=== PATIENT | female | born 1985 | race American Indian/Alaskan Native ===

== ENCOUNTER 2021-05-17 16:20 | Emergency (ER) | payer MEDICAID ==
[2021-05-17 16:34] VITALS: BP 167/85
[2021-05-17] MEDS ORDERED: FAMOTIDINE 20 MG/2 ML INJ IV ONE (16:35)
[2021-05-17] MEDS ORDERED: diphenhydrAMINE 50 MG/ML VIAL IV ONE (16:35)
[2021-05-17] MEDS ORDERED: SODIUM CHLORIDE 0.9% 1000 ML 1,000 ML IV ONE (16:35)
[2021-05-17] MEDS ORDERED: methylPREDNISolone Sod Succinate 125 MG/2 ML INJ IV ONE (16:36)
[2021-05-17] MEDS ORDERED: EPINEPHrine/PF 1 MG/1 ML INJ SUB-Q ONE (16:36)
--- NOTE | 2021-05-17 16:42 | Emergency Department Report ---
ED General Adult HPI - General Chief complaint: Allergic Reaction Stated complaint: ALLERGIC REACTION Time Seen by Provider: 05/17/21 16:34 Source: patient Mode of arrival: Ambulatory Limitations: No Limitations - History of Present Illness Initial comments: 35-year-old female presents to the ER today with complaints of allergic reaction and breaking out in hives. Patient states that she was on her way to work when she started itching all over. She states that when she looked she noticed that she was covered in hives all over her body. She reports swelling around her eyes , but denies any tongue or lip swelling, throat swelling, itching in her throat, wheezing, or difficulty breathing. she denies any specific triggers such as new foods, soaps, lotions, new meds or any other new contacts. She states that she did take 2 Benadryl's prior to coming in without much relief of her symptoms. Patient states that she has been breaking out in hives off and on since last year. She states usually when she breaks out it would be mild. She denies any specific trigger. She states that typically she would take some Benadryl and it would resolve. 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 She denies prior allergy to any shellfish. She has never seen a marketing project manager or primary care doctor or an developer trading systems since she has been breaking out in hives. She states that this is the worst that it has been and this is the first time she ever came to the ER for that. Complaint: Allergic reaction -: Sudden - Related Data Previous Rx's Medication Instructions Recorded Last Taken Type HYDROcodone/APAP 5-325 [[place] 1 each PO Q6HR PRN #10 tablet 07/30/16 Unknown Rx 5/325] EPINEPHrine [Epipen] 0.3 mg IJ ONCE #1 auto.injct 05/17/21 Unknown Rx Famotidine [Pepcid] 20 mg PO BID #10 tablet 05/17/21 Unknown Rx diphenhydrAMINE [Benadryl CAP] 25 mg PO Q6HR PRN #30 capsule 05/17/21 Unknown Rx predniSONE [Deltasone] 50 mg PO QDAY #5 tab 05/17/21 Unknown Rx Allergies Allergy/AdvReac Type Severity Reaction Status Date / Time No Known Allergies Allergy Verified 01/16/16 12:39 ED Review of Systems ROS: Stated complaint: ALLERGIC REACTION Other details as noted in HPI Comment: All other systems reviewed and negative Constitutional: denies: chills, diaphoresis, fever, malaise, weakness Eyes: denies: eye pain, eye discharge, vision change ENT: denies: ear pain, throat pain, dental pain, hearing loss, epistaxis, congestion Respiratory: denies: cough, orthopnea, shortness of breath, SOB with exertion, SOB at rest, wheezing Cardiovascular: denies: chest pain, palpitations, dyspnea on exertion, edema, syncope, paroxysmal nocturnal dyspnea Endocrine: no symptoms reported Gastrointestinal: denies: abdominal pain, nausea, vomiting, diarrhea, constipation, hematemesis, melena, hematochezia Genitourinary: denies: urgency, dysuria, discharge Musculoskeletal: denies: back pain, joint swelling, arthralgia, myalgia Skin: rash, pruritus. denies: lesions Neurological: denies: headache, weakness, paresthesias Psychiatric: denies: anxiety, depression, auditory hallucinations, visual hallucinations, homicidal thoughts, suicidal thoughts Hematological/Lymphatic: denies: easy bleeding, easy bruising, swollen glands ED Past Medical Hx - Past Medical History Hx Hypertension: No Hx Seizures: No Hx Asthma: No - Surgical History Additional Surgical History: tubal ligation - Social History Smoking Status: Never Smoker Substance Use Type: None - Medications Home Medications: Home Medications Medication Instructions Recorded Confirmed Last Taken Type HYDROcodone/APAP 5-325 [[place] 1 each PO Q6HR PRN #10 tablet 07/30/16 Unknown Rx 5/325] EPINEPHrine [Epipen] 0.3 mg IJ ONCE #1 auto.injct 05/17/21 Unknown Rx Famotidine [Pepcid] 20 mg PO BID #10 tablet 05/17/21 Unknown Rx diphenhydrAMINE [Benadryl CAP] 25 mg PO Q6HR PRN #30 capsule 05/17/21 Unknown Rx predniSONE [Deltasone] 50 mg PO QDAY #5 tab 05/17/21 Unknown Rx ED Physical Exam - General Limitations: No Limitations General appearance: alert, in no apparent distress - Head Head exam: Present: atraumatic, normocephalic, normal inspection - Eye Eye exam: Present: PERRL, EOMI, scleral icterus, conjunctival injection, nystagmus, periorbital swelling (Mild bilaterally). Absent: periorbital tenderness - ENT ENT exam: Present: normal exam, normal orophraynx, mucous membranes moist, TM's normal bilaterally - Neck Neck exam: Present: normal inspection, full ROM - Respiratory Respiratory exam: Present: normal lung sounds bilaterally. Absent: respiratory distress, wheezes, rales, rhonchi, stridor - Cardiovascular Cardiovascular Exam: Present: regular rate, normal rhythm, normal heart sounds - Back Exam Back exam: Present: full ROM - Neurological Exam Neurological exam: Present: alert, oriented X3, CN II-XII intact, normal gait - Psychiatric Psychiatric exam: Present: anxious - Skin Skin exam: Present: urticaria ( severe erythematous urticarial rash noted to bilateral upper extremities, trunk, and bilateral upper legs) ED Course Vital Signs 05/17/21 16:27 Temperature 97.4 F L Pulse Rate 99 H Respiratory 16 Rate Blood Pressure 167/85 O2 Sat by Pulse 100 Oximetry ED Medical Decision Making - Medical Decision Making 192: Patient reports feeling much better after IV Benadryl, Solu-Medrol Pepcid and epi. Urticarial rash has complete resolved after meds. Mild periorbital swelling also improved. Patient is resting comfortably, sitting up in the bed. She is not in any respiratory distress. Her airway is intact. She is controlling her secretions well and there is no stridor. She is not toxic or ill appearing and she is neurologically intact with normal gait. Discuss treatment plan with patient. She will be give rx for epi pen as well. Discussed with her the importance of following up with the marketing project manager/developer trading systems to figure out cause of her symptoms. There is no indication for any additional test/treatment or admission at this time. Patient expressed understanding of instructions and agree with plan. Patient was stable at time of discharge. Critical care attestation.: If time is entered above; I have spent that time in minutes in the direct care of this critically ill patient, excluding procedure time. ED Disposition Clinical Impression: Urticaria, Allergic reaction Disposition: - TO HOME OR SELFCARE Is pt being admited?: No Does the pt Need Aspirin: No Condition: Stable Instructions: Hives, [id number] Additional Instructions: Take the Benadryl, the prednisone and the Pepcid as prescribed. Use the EpiPen as instructed. It is important that you follow-up with a marketing project manager and developer trading systems to further evaluate the cause of your recurrent urticarial rash. Return to ED if worse. Prescriptions: diphenhydrAMINE [Benadryl CAP] 25 mg PO Q6HR PRN #30 capsule PRN Reason: itching/rash predniSONE [Deltasone] 50 mg PO QDAY #5 tab EPINEPHrine [Epipen] 0.3 mg IJ ONCE #1 auto.injct Famotidine [Pepcid] 20 mg PO BID #10 tablet Referrals: JAMESON DAVIS MD [Staff Physician] - 3-5 Days Lump, and bump [Other] - 3-5 Days Forms: Work/School Release Form(ED) Time of Disposition: 19:26
== END 2021-05-17 19:45 | disposition home or self-care (01) ==
LOC: ED 16:20
DX: T78.40XA Allergy, unspecified, initial encounter (principal); L50.9 Urticaria, unspecified; Z98.51 Tubal ligation status; Z79.899 Other long term (current) drug therapy; X58.XXXA Exposure to other specified factors, initial encounter
CPT/HCPCS: 96361; 96372; 96374; 96375; 99282; J1200; J2930; J7030